=== PATIENT | male | born 1980 | race African-American/Black ===

== ENCOUNTER 2017-05-30 21:38 | Emergency (ER) | payer SELFPAY ==
[~2017-05-30] VITALS: Ht 188 cm; Wt 117.9 kg
[2017-05-30 21:45] VITALS: BP 141/82
[2017-05-30] MEDS ORDERED: CEFTRIAXONE 500 MG VIAL IM ONE (22:00)
[2017-05-30] MEDS ORDERED: AZITHROMYCIN 250 MG TABLET PO ONE (22:00)
[2017-05-30 22:04] LABS: APPEARANCE,URINE CLEAR (CLEAR); BILIRUBIN,URINE 1+ (NEGATIVE); BLOOD, URINE NEGATIVE Ery/uL (NEGATIVE); COLOR,URINE YELLOW (YELLOW); KETONES,URINE NEGATIVE (NEGATIVE); LEUKOCYTE ESTERASE ,URINE TRACE (NEGATIVE); NITRITE, URINE NEGATIVE (NEGATIVE); PROTEIN,URINE NEGATIVE (NEGATIVE); UGLUCOSE NEGATIVE (NEGATIVE)
[2017-05-30] MEDS ORDERED: CEFTRIAXONE 500 MG VIAL ONE (22:05)
[2017-05-30] MEDS ORDERED: AZITHROMYCIN 250 MG TABLET ONE (22:05)
[2017-05-30 22:08] LABS: BACTERIA,URINE Moderate /HPF (None Seen); RBC,URINE 0-2 /HPF (0-2); SQUAMOUS EPITHELIAL CELL,UR Few /HPF (None Seen); WBC,URINE 81-100 /HPF (0-3)
[2017-05-30 22:09] LABS: MUCUS,URINE Few /LPF (None Seen)
[2017-05-30] MEDS ORDERED: LIDOCAINE /MPF 1% VIAL 5 ML VIAL ONE (22:09)
[2017-05-30] MEDS ORDERED: oxyCODONE/APAP (5/325 MG) 1 UDTAB TABLET PO ONE (22:30)
[2017-05-30] MEDS ORDERED: ONDANSETRON 4 MG TAB.RAPDIS SL ONE (22:30)
[2017-05-31] MEDS ORDERED: IBUPROFEN 400 MG TABLET ONE (05:05)
== END 2017-05-30 22:22 | disposition home or self-care (01) ==
LOC: ER 21:38
DX: A64 Unspecified sexually transmitted disease (principal); F17.210 Nicotine dependence, cigarettes, uncomplicated; Z87.440 Personal history of urinary (tract) infections
CPT/HCPCS: 81001; 87086; 96372; 99284; A4606; J0696; J3490; Z7610; 81000-TC